=== PATIENT | female | born 1995 | race Caucasian/White ===

== ENCOUNTER 2017-04-26 17:05 | Emergency (ER) | payer MEDICAID ==
[~2017-04-26 17:05] MED LIST: CIPR750T10 PO; CYCL-36 PO; FLAG250T PO; IBUP-232 PO; LORTA5 PO; MACR100C PO
[2017-04-26 17:07] VITALS: BP 117/83; PULSE 104; RESP 16; TEMP 98.3; O2SAT 98
[2017-04-26] MEDS ORDERED: CHLO.12%30 SWISH-SPIT (18:04)
[2017-04-26] MEDS ORDERED: LIDO1SOL8 SWISH-SWAL (18:04)
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
== END 2017-04-26 18:18 | disposition home or self-care (01) ==
LOC: NEPK 17:05
DX: K13.70 Unspecified lesions of oral mucosa (principal); J45.909 Unspecified asthma, uncomplicated; K21.9 Gastro-esophageal reflux disease without esophagitis; F17.210 Nicotine dependence, cigarettes, uncomplicated; Z88.0 Allergy status to penicillin; Z79.899 Other long term (current) drug therapy
CPT/HCPCS: 99284

== ENCOUNTER 2017-11-17 10:31 | Emergency (ER) | payer MEDICAID ==
[~2017-11-17] VITALS: Ht 162.6 cm; Wt 84.0 kg
[~2017-11-17 10:31] MED LIST changes: +CHLO.12%30 SWISH-SPIT; +LIDO1SOL8 SWISH-SWAL
[2017-11-17 10:43] VITALS: BP 115/77; PULSE 85; RESP 16; TEMP 98; O2SAT 99
--- NOTE | 2017-11-17 11:45 | PD ---
HPI Chief Complaint: Complaint Time Seen by Provider: 11:09 Travel History International Travel<30 days: No Contact w/Intl Traveler<30days: No Traveled to known affect area: No History of Present Illness HPI 21-year-old female came to the emergency room with history of foul-smelling urine for past 2 months. No dysuria. And also right upper quadrant pain and nausea for past 1 week. Patient says the right upper quadrant pain in her abdomen radiates to her right upper back. She was told a few years ago that she has gallbladder disease. Patient still has her gallbladder in. She has had hysterectomy done 3 years ago. Vital signs are stable. No history of vomiting. No history of diarrhea. The pain is just there all the time and is dull and 8 out of 10. No aggravating or relieving factors identified. Patient says she has been taking ibuprofen and Tylenol [id number] for the pain. Lately in past 1 week she has taken up to 6 Tylenol 500 mg each every day for past 1 week. PFSH Past Medical History Narrative Medical List of her past medical, surgical, social and family history reviewed from the nursing note Hx Anticoagulant Therapy: No Asthma: Yes (Exercise-induced) Blood Disorders: No Cancer: No Cardiovascular Problems: No Chemotherapy: No Cerebrovascular Accident: No Diabetes: No Diminished Hearing: No Endocrine: No Gastrointestinal Disorders: Yes (NEGATIVE CDIFF 02/01) GERD: Yes Genitourinary: No Immune Disorder: No Musculoskeletal: No Neurologic: No Psychiatric: No Reproductive: No Respiratory: Yes (exercise induce asthma) Immunizations Current: Yes Influenza Vaccination: No ?: Not : 4 Para: 3 Miscarriage: 0 : 0 Past Surgical History Abdominal Surgery: No Cardiac Surgery: No Ear Surgery: No Endocrine Surgery: No Eye Surgery: No Genitourinary Surgery: No Gynecologic Surgery: Yes (UTERUS REMOVED) Hysterectomy: Yes Oral Surgery: No Thoracic Surgery: No Other Surgery: Yes Social History Alcohol Use: No Tobacco Use: Yes (6 cigarettes/day) Substance Use: No Allergies-Medications (Allergen,Severity, Reaction): Coded Allergies: amoxicillin (Unverified Allergy, Severe, Rash, 01/05/17) Comments List of her allergies reviewed from the nursing note. Reported Meds & Prescriptions Reported Meds & Active Scripts Active Macrobid (Nitrofurantoin Monoh/Nitrofur Macro) 100 Mg Cap 100 Mg PO BID 10 Days Chlorhexidine Gluconate (Mouth) Liq (Chlorhexidine Gluconate) 0.12% Soln 15 Ml SWISH-SPIT BID Lidocaine Viscous Liq 2 % Liqd 5 Ml SWISH-SWAL DIRECTED PRN Motrin (Ibuprofen) 600 Mg Tab 600 Mg PO TID Flexeril (Cyclobenzaprine HCl) 10 Mg Tab 10 Mg PO TID Reported [place] 5-325 mg (Hydrocodone-Acetaminophen 5-325 mg) 1 Tab 1 Tab PO Q6H PRN Macrobid (Nitrofurantoin Macrocrystals) 100 Mg Cap 100 Mg PO DAILY Flagyl (Metronidazole) 250 Mg Tab 250 Mg PO DAILY Ciprofloxacin 750 Mg Tab (Ciprofloxacin) 750 Mg Tab 750 Mg PO DAILY Narrative Medication List of her home medications reviewed from the nursing note. Review of Systems Except as stated in HPI: all other systems reviewed are Neg Gastrointestinal: Positive: Nausea, Abdominal Pain Physical Exam Narrative GENERAL: Awake, alert, moderate distress, disheveled SKIN: Focused skin assessment warm/dry. HEAD: Atraumatic. Normocephalic. EYES: Pupils equal and round. No scleral icterus. No injection or drainage. ENT: No nasal bleeding or discharge. Dry mucous membranes NECK: Trachea midline. No JVD. CARDIOVASCULAR: Regular rate and rhythm. No murmur appreciated. RESPIRATORY: No accessory muscle use. Clear to auscultation. Breath sounds equal bilaterally. GASTROINTESTINAL: Abdomen soft, right upper quadrant and, nondistended. Hepatic and splenic margins not palpable. MUSCULOSKELETAL: No obvious deformities. No clubbing. No cyanosis. No edema. NEUROLOGICAL: Awake and alert. No obvious cranial nerve deficits. Motor grossly within normal limits. Normal speech. PSYCHIATRIC: Appropriate mood and affect; insight and judgment normal. Data Data Last Documented VS Vital Signs Date Time Temp Pulse Resp B/P (MAP) Pulse Ox O2 Delivery O2 Flow Rate FiO2 11/17/17 10:43 98.0 85 16 115/77 (90) 99 Orders Orders Urinalysis - C+S If Indicated (11/17/17 11:06) Complete Blood Count With Diff (11/17/17 11:59) Comprehensive Metabolic Panel (11/17/17 11:59) Lipase (11/17/17 11:59) Iv Access Insert/Monitor (11/17/17 11:59) Ecg Monitoring (11/17/17 11:59) Oximetry (11/17/17 11:59) Sodium Chlor 0.9% 1000 Ml Inj (Ns 1000 M (11/17/17 11:59) Sodium Chloride 0.9% Flush (Ns Flush) (11/17/17 12:00) Metoclopramide Inj (Reglan Inj) (11/17/17 12:00) Tylenol (Acetaminophen) (11/17/17 11:59) Urine Culture (11/17/17 10:50) Nitrofurantoin Monohyd Macrocr (Macrobid (11/17/17 12:30) Labs Laboratory Tests Test 11/17/17 10:50 11/17/17 12:25 Urine Color YELLOW Urine Turbidity HAZY Urine pH 5.0 Urine Specific [place] 1.018 Urine Protein NEG mg/dL Urine Glucose (UA) NEG mg/dL Urine Ketones NEG mg/dL Urine Occult Blood SMALL Urine Nitrite POS Urine Bilirubin NEG Urine Urobilinogen LESS THAN 2 mg/dL Urine Leukocyte Esterase TRACE Urine WBC 14 /hpf Urine Squamous Epithelial Cells 1 /hpf Urine Bacteria MANY /hpf Urine Mucus MANY /lpf Microscopic Urinalysis Comment CULTURE INDICATED White Blood Count 4.7 TH/MM3 Red Blood Count 4.15 MIL/MM3 Hemoglobin 12.7 GM/DL Hematocrit 38.3 % Mean Corpuscular Volume 92.3 FL Mean Corpuscular Hemoglobin 30.7 PG Mean Corpuscular Hemoglobin Concent 33.3 % Red Cell Distribution Width 13.6 % Platelet Count 127 TH/MM3 Mean Platelet Volume 9.1 FL Neutrophils (%) (Auto) 53.6 % Lymphocytes (%) (Auto) 32.3 % Monocytes (%) (Auto) 7.4 % Eosinophils (%) (Auto) 6.0 % Basophils (%) (Auto) 0.7 % Neutrophils # (Auto) 2.5 TH/MM3 Lymphocytes # (Auto) 1.5 TH/MM3 Monocytes # (Auto) 0.3 TH/MM3 Eosinophils # (Auto) 0.3 TH/MM3 Basophils # (Auto) 0.0 TH/MM3 CBC Comment DIFF FINAL Differential Comment Blood Urea Nitrogen 11 MG/DL Creatinine 0.65 MG/DL Random Glucose 85 MG/DL Total Protein 6.9 GM/DL Albumin 3.8 GM/DL Calcium Level 8.9 MG/DL Alkaline Phosphatase 68 U/L Aspartate Amino Transf (AST/SGOT) 15 U/L Alanine Aminotransferase (ALT/SGPT) 19 U/L Total Bilirubin 0.3 MG/DL Sodium Level 143 MEQ/L Potassium Level 3.8 MEQ/L Chloride Level 112 MEQ/L Carbon Dioxide Level 24.5 MEQ/L Anion Gap 7 MEQ/L Estimat Glomerular Filtration Rate 113 ML/MIN Lipase 138 U/L Acetaminophen Level LESS THAN 2.0 MCG/ML MDM Medical Decision Making Medical Screen Exam Complete: Yes Emergency Medical Condition: Yes Medical Record Reviewed: Yes Differential Diagnosis Acute cholecystitis, UTI, biliary colic, Tylenol toxicity, hepatitis Narrative Course 12:34 PM awaiting for blood test result. Patient was given medication for nausea. UA suggestive of UTI and have given her a dose of Macrobid. I try to do a bedside ultrasound to look for the gallbladder and was unsuccessful. I have ordered an official ultrasound. 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 She had a CBC back which shows thrombocytopenia but otherwise within normal limit. CMP is pending and so is the ultrasound. Patient will be leaving AGAINST MEDICAL ADVICE. She is in full capacity to make decisions for herself. Procedures Procedure Narrative Emergency department right upper quadrant ultrasound was performed with patient consent. Curvilinear probe was used in the transverse and sagittal views within the right upper quadrant unable to visualize gallbladder. EKG Prior to Arrival: No Diagnosis Primary Impression: UTI (urinary tract infection) Qualified Codes: N39.0 - Urinary tract infection, site not specified Additional Impressions: Thrombocytopenia Abdominal pain Qualified Codes: R10.11 - Right upper quadrant pain Med/Other Pt SpecificInfo: Prescription(s) given Scripts Nitrofurantoin Monohydrate Macrocrystals (Macrobid) 100 Mg Cap 100 MG PO BID for Infection for 10 Days, #20 CAP 0 Refills Prov: Radha Hunter MD 11/17/17 Disposition: 07 AGAINST MEDICAL ADVICE Condition: Serious Radha Hunter MD Nov 17, 2017 11:45
[2017-11-17] MEDS ORDERED: SODIUM CHLOR 0.9% 1000 ML INJ 1,000 ML IV SCH (11:59)
[2017-11-17] MEDS ORDERED: SODIUM CHLORIDE 0.9% FLUSH 10 ML FLUSH IV FLUSH PRN (12:00)
[2017-11-17] MEDS ORDERED: METOCLOPRAMIDE HCL 10 MG/2 ML VIAL IV PUSH ONE (12:00)
[2017-11-17 12:10] LABS: BACTERIA, URINE MANY /hpf; BILIRUBIN, URINE NEG (NEG); BLOOD, URINE SMALL (NEG); GLUCOSE,URINE NEG (NEG); KETONE, URINE NEG (NEG); MUCUS URINE MANY /lpf (OCC); NITRITE,URINE POS (NEG); SQUAMOUS EPITHELIAL CELL URINE 1 /hpf (0-5); URINE COLOR YELLOW (YELLW/STRAW); URINE LEUKOCYTE ESTERASE TRACE (NEG)
[2017-11-17] MEDS ORDERED: NITROFURANTOIN MONOHYD MACROCR 100 MG CAP PO ONE (12:30)
[2017-11-17 13:07] LABS: AUTOMATED NEUTROPHIL # 2.5 TH/MM3 (1.8-7.7); BASOPHIL % 0.7 % (0.0-2.0); EOSINOPHIL # 0.3 TH/MM3 (0-0.4); HEMATOCRIT 38.3 % (35.0-46.0); HEMOGLOBIN 12.7 GM/DL (11.6-15.3); LYMPH % 32.3 % (9.0-44.0); LYMPHOCYTE # 1.5 TH/MM3 (1.0-4.8); MEAN CELL VOLUME 92.3 FL (80.0-100.0); MEAN CORPUSCULAR HEMOGLOBIN 30.7 PG (27.0-34.0); MEAN CORPUSCULAR HGB CONC 33.3 % (32.0-36.0); MEAN PLATELET VOLUME 9.1 FL (7.0-11.0); MONO % 7.4 % (0.0-8.0); MONOCYTE # 0.3 TH/MM3 (0-0.9); NEUT % 53.6 % (16.0-70.0); PLATELET COUNT 127 TH/MM3 (150-450); RED BLOOD COUNT 4.15 MIL/MM3 (4.00-5.30); RED CELL DISTRIBUTION WIDTH 13.6 % (11.6-17.2); WHITE BLOOD COUNT 4.7 TH/MM3 (4.0-11.0)
[2017-11-17] MEDS ORDERED: MACR100C2 PO (13:13)
[2017-11-17 13:29] LABS: ALBUMIN 3.8 GM/DL (3.4-5.0); BLOOD UREA NITROGEN 11 MG/DL (7-18); CALCIUM 8.9 MG/DL (8.5-10.1); CREATININE 0.65 MG/DL (0.50-1.00); GLOMERULAR FILTRATION RATE 113 ML/MIN (>89); GLUCOSE,RANDOM 85 MG/DL (74-106); TOTAL PROTEIN 6.9 GM/DL (6.4-8.2)
[2017-11-17 13:30] LABS: ALKALINE PHOSPHATASE 68 U/L (45-117); ALT (GPT) 19 U/L (10-53); AST (GOT) 15 U/L (15-37); BICARBONATE 24.5 MEQ/L (21.0-32.0); CHLORIDE 112 MEQ/L (98-107); SODIUM (NA) 143 MEQ/L (136-145); TOTAL BILIRUBIN ADULT 0.3 MG/DL (0.2-1.0)
[2017-11-17 13:37] LABS: ACETAMINOPHEN LESS THAN 2.0 MCG/ML (10.0-30.0)
== END 2017-11-17 13:52 | disposition left against medical advice (07) ==
LOC: NEPD 10:31
DX: N39.0 Urinary tract infection, site not specified (principal); B96.89 Other specified bacterial agents as the cause of diseases classified elsewhere; D69.6 Thrombocytopenia, unspecified; K21.9 Gastro-esophageal reflux disease without esophagitis; F17.210 Nicotine dependence, cigarettes, uncomplicated; Z88.0 Allergy status to penicillin
CPT/HCPCS: 80053; 80307; 81001; 83690; 85025; 87086; 96374; 99284; J2765; J7030